=== PATIENT | female | born 1985 | race Caucasian/White ===

== ENCOUNTER 2022-03-02 07:55 | Emergency (ER) | payer OTHER, SELFPAY | END 2022-03-02 09:30 | disposition home or self-care (01) | LOC: EEVIPCON 07:55 → ERS 07:55 | DX: S93.402A Sprain of unspecified ligament of left ankle, initial encounter (principal); G47.00 Insomnia, unspecified; W01.0XXA Fall on same level from slipping, tripping and stumbling without subsequent striking against object, initial encounter; Y92.009 Unspecified place in unspecified non-institutional (private) residence as the place of occurrence of the external cause ==

== ENCOUNTER 2022-03-31 17:04 | Emergency (ER) | payer SELFPAY | END 2022-03-31 19:14 | disposition short-term general hospital (02) | LOC: ERS 17:04 | DX: T74.21XA Adult sexual abuse, confirmed, initial encounter (principal); S40.011A Contusion of right shoulder, initial encounter; S80.01XA Contusion of right knee, initial encounter; Y04.2XXA Assault by strike against or bumped into by another person, initial encounter | CPT/HCPCS: 99285 ==